=== PATIENT | female | born 1990 | race Caucasian/White ===

== ENCOUNTER 2020-04-17 16:55 | Emergency (ER) | payer MEDICARE, MEDICAID, SELFPAY ==
--- NOTE | 2020-04-17 | CT_ITS ---
CT HEAD WITHOUT CONTRAST CLINICAL INFORMATION: Headache, grand mal seizure with head trauma COMPARISON: None TECHNIQUE: Contiguous axial imaging was performed from the skull base to vertex without intravenous administration of contrast. This CT examination was performed using dose optimization techniques as appropriate, variously including the following: *Automated exposure control *Adjustment of mA and/or kV according to patient size (this includes techniques or standardized protocols for targeted exams where dose is matched to indication/reason for exam; i.e. extremities or head) *Use of iterative reconstruction technique FINDINGS: There is no intracranial hemorrhage, hydrocephalus, extra-axial surface collection, midline shift, or other herniation pattern. Branch to white matter differentiation is diffusely maintained without evidence of an evolved acute territorial infarct. The basilar cisterns are preserved. No significant soft tissue abnormality. No acute osseous abnormality. The paranasal sinuses and the mastoid air cells are well aerated. IMPRESSION: No acute intracranial abnormality. In the setting of seizure, MRI would be more sensitive in evaluation.
[2020-04-17 18:22] VITALS: PULSE 74; RESP 16; TEMP 37; O2SAT 98; BMI 25.1
--- NOTE | 2020-04-17 18:55 | PC.NURSE ---
Report taken from Claribel DAUGHERTY. First contact with PT. Laying in bed A&Ox4, skin pwd respirations even unlabored. Awaiting CTscan and lab draw.Aware of plan of care.
[2020-04-17 19:06] LABS: MANUAL DIFF FLAG NO
[2020-04-17 19:09] LABS: Basophils Absolute Auto 0.1 X10*3/uL (0.0-0.2); Basophils Percent Auto 0.8 % (0-2); Eosinophils Absolute Auto 0.1 X10*3/uL (0.0-0.4); Eosinophils Percent Auto 0.8 % (0-4); Hematocrit 38.7 % (37-47); Hemoglobin 12.8 g/dl (12.0-16.0); Imm Gran Abs Auto 0.02 X10*3/uL (0.00-0.03); Imm Gran Pct Auto 0.3 % (0.0-0.4); Lymphocytes Absolute Auto 2.1 X10*3/uL (1.2-4.9); Lymphocytes Percent Auto 32.9 % (20-40); Mean Corpuscular HGB Conc 33.1 g/dl (31.0-35.0); Mean Corpuscular Hemoglobin 29.4 pg (27.0-33.0); Mean Corpuscular Volume 88.8 fL (80-98); Monocytes Absolute Auto 0.5 X10*3/uL (0.1-1.2); Monocytes Percent Auto 7.7 % (2-11); Neutrophils Absolute Auto 3.7 X10*3/uL (2.0-8.3); Neutrophils Percent Auto 57.5 % (45-73); Platelet Count 318 X10*3/uL (160-400); Red Blood Count 4.36 X10*6/uL (4.20-5.50); Red Cell Distribution Width 11.9 % (11.0-16.0); White Blood Count 6.5 X10*3/uL (4.8-10.8)
[2020-04-17] MEDS: ondansetron HCL 4 MG/2 ML VIAL IVPUSH (19:12)
[2020-04-17] MEDS: diphenhydrAMINE HCL 50 MG/ML VIAL IVPUSH (19:13)
[2020-04-17] MEDS: 0.9 % Sodium Chloride 1,000 ML 999 ML IVCONT (19:13)
[2020-04-17] MEDS: Ketorolac Tromethamine 30 MG/ML VIAL IVPUSH (19:13)
--- NOTE | 2020-04-17 19:23 | PC.NURSE ---
Pt returned from CT, medicated per MAR for headache 11/23. IVF hung and infusing without difficulty.Awaiting results. Aware of plan of care.
[2020-04-17 19:34] LABS: Alanine Aminotransferase 9 U/L (0-31); Albumin Level 4.3 g/dL (3.5-5.0); Alkaline Phosphatase 50 U/L (39-117); Anion Gap 12 (12-20); Aspartate Amino Transferase 13 U/L (5-31); Bilirubin Direct < 0.2 mg/dL (0.0-0.5); Bilirubin Total 0.2 mg/dL (0.0-1.0); Blood Urea Nitrogen 12 mg/dL (9-16); Calcium 8.9 mg/dL (8.4-10.2); Carbon Dioxide 23 mmol/L (22-29); Chloride 108 mmol/L (96-108); Creatinine Clr Calc Pharmacy 87.6; Estimated Glomerular Filt Rate > 60; Glucose Random 90 mg/dL (60-115); Lipase 48 U/L (8-78); Potassium 4.4 mmol/l (3.3-5.1); Sodium 139 mmol/L (135-145); Total Protein 6.6 g/dL (6.5-8.0)
[2020-04-17 19:41] VITALS: BP 114/78; PULSE 63; RESP 14; O2SAT 100
--- NOTE | 2020-04-17 19:43 | ED.SEIZURE ---
HPI - Seizure General Chief Complaint: Seizure <Eileen Read NP - Last Filed: 04/17/20 21:50> Stated Complaint: SEIZURE <Eileen Read NP - Last Filed: 04/17/20 21:50> Time Seen by Provider: 04/17/20 18:10 <Eileen Read NP - Last Filed: 04/17/20 21:50> Source: patient <Eileen Read NP - Last Filed: 04/17/20 21:50> Mode of arrival: ambulatory <Eileen Read NP - Last Filed: 04/17/20 21:50> Limitations: no limitations <Eileen Read NP - Last Filed: 04/17/20 21:50> History of Present Illness HPI Narrative: 29-year-old female presents with multiple complaints. One stating that she has had multiple seizures over the past week, on Monday she had a petite mall and was able to use her implanted vagal stimulator to defect this from becoming a grand mal, on Monday she had a grand mall with loss of consciousness and possible head trauma, and also on . Her 2nd complaint is nauseousness and poor p.o. intake. She states to be very thirsty, has made out of 10 headache that has not been alleviated with her home medications and Tylenol. She does not describe any chest pain or pressure, palpitations, shortness of breath, abdominal pain,, dysuria, hematuria, fevers, chills, trauma, and illicit drug use. She was admitted to [facility] in January for intentional overdose. <Eileen Read NP - Last Filed: 04/17/20 21:50> MD complaint: seizure <Eileen Read NP - Last Filed: 04/17/20 21:50> Onset (ago): day(s) <Eileen Read NP - Last Filed: 04/17/20 21:50> Description of Episode: loss of consciousness, tonic-clonic movement, bladder incontinence and post-event confusion <Eileen Read NP - Last Filed: 04/17/20 21:50> Trauma: Yes ( Possible head trauma) <Eileen Read NP - Last Filed: 04/17/20 21:50> Seizure History: Yes <Eileen Read NP - Last Filed: 04/17/20 21:50> Place: Home <Eileen Read NP - Last Filed: 04/17/20 21:50> Possible Precipitating Event: lack of sleep and stress <Eileen Read NP - Last Filed: 04/17/20 21:50> Associated symptoms: loss of appetite <Eileen Read NP - Last Filed: 04/17/20 21:50> Related Data Home Medications: Previous Rx's Medication Instructions Recorded quztxlaamk-urrxcdzuuyfdi-yncr 1 cap PO Q8H PRN #14 cap 04/17/20 [Fioricet] <Eileen Read NP - Last Filed: 04/17/20 21:50> Allergies/Adverse Reactions: Allergies Allergy/AdvReac Type Severity Reaction Status Date / Time carbamazepine [From Tegretol] Allergy Unknown RASH Verified 04/17/20 18:54 phenytoin [From DILANTIN] Allergy Unknown rash Verified 04/17/20 18:54 <Eileen Read NP - Last Filed: 04/17/20 21:50> Review of Systems Constitutional: Constitutional: Reports difficulty sleeping, Reports headache(s) and Reports poor appetite <Eileen Read NP - Last Filed: 04/17/20 21:50> Eyes: Eyes: Reports no additional eye complaints <Eileen Read NP - Last Filed: 04/17/20 21:50> ENT: Denies vertigo, Reports headache(s) and Denies disequilibrium <Eileen Read NP - Last Filed: 04/17/20 21:50> Cardiovascular: Cardiovascular: Reports no additional cardiovascular complaints and Denies syncope <Eileen Read NP - Last Filed: 04/17/20 21:50> Respiratory: Respiratory: Reports no additional respiratory complaints <Eileen Read NP - Last Filed: 04/17/20 21:50> Gastrointestinal: Gastrointestinal: Reports early satiety and Reports nausea <Eileen Read NP - Last Filed: 04/17/20 21:50> Genitourinary: Genitourinary: Reports no additional female genitourinary complaints <Eileen Read NP - Last Filed: 04/17/20 21:50> Musculoskeletal: Musculoskeletal: Reports no additional musculoskeletal complaints and Denies abnormal gait <Eileen Read NP - Last Filed: 04/17/20 21:50> Integumentary/Breasts: Skin/Breast: Reports system reviewed and no additional complaints, except as docu <Eileen Read NP - Last Filed: 04/17/20 21:50> Neurologic: Denies Neuro-related abnormal movements, Denies Abnormal speech present, Denies abnormal gait, Denies behavioral changes, Denies vertigo, Denies syncope, Reports headache(s), Denies focal weakness, Denies Other visual disturbances, Reports seizure-like activity and Denies disequilibrium <Eileen Read NP - Last Filed: 04/17/20 21:50> Psychiatric: Psychiatric: Reports no additional psychiatric complaints and Denies behavioral changes <Eileen Read NP - Last Filed: 04/17/20 21:50> Endocrine: Endocrine: Reports no additional endocrine complaints <Eileen Read NP - Last Filed: 04/17/20 21:50> PMF Past Medical History Source: nursing notes reviewed <Eileen Read NP - Last Filed: 04/17/20 21:50> Medical History: Medical History Anxiety Borderline personality disorder Depression Seizure <Eileen Read NP - Last Filed: 04/17/20 21:50> Surgical History: Surgical History S/P placement of VNS (vagus nerve stimulation) device <Eileen Read NP - Last Filed: 04/17/20 21:50> Social History Social History: Social History Smoking Status: Current every day smoker Use of substances other than those prescribed or required for medical reasons: No Advance Directives: No Advance Directives Information Provided: Yes <Eileen Read NP - Last Filed: 04/17/20 21:50> Physical Exam Vital Signs and I&O and Narrative: Vital Signs and I&O: Vital Signs Temp 98.6 F 04/17/20 18:22 Pulse 63 04/17/20 19:41 Resp 14 04/17/20 19:41 BP 114/78 04/17/20 19:41 Pulse Ox 100 04/17/20 19:41 Intake & Output 04/17/20 04/17/20 04/18/20 06:59 18:59 06:59 Intake Total 1000 / 1000 Balance 1000 / 1000 Weight 77.21 kg Intake: Intake, IV Amoun t 1000 / 1000 0.9 % Sodium C hloride 1,000 ml 1000 / 1000 @ 999 mls/hr I VCONT .Q1H1M [facility] Rx#:[id number] Body Mass Index 25.1 <Eileen Read DIRECTOR OF RESIDENTIAL SERVICES - Last Filed: 04/17/20 21:50> Vital Signs and I&O: Vital Signs Temp 98.6 F 04/17/20 18:22 Pulse 63 04/17/20 19:41 Resp 14 04/17/20 19:41 BP 114/78 04/17/20 19:41 Pulse Ox 100 04/17/20 19:41 Intake & Output 04/17/20 04/17/20 04/18/20 06:59 18:59 06:59 Intake Total 1000 / 1000 Balance 1000 / 1000 Weight 77.21 kg Intake: Intake, IV Amoun t 1000 / 1000 0.9 % Sodium C hloride 1,000 ml 1000 / 1000 @ 999 mls/hr I VCONT .Q1H1M [facility] Rx#:[id number] Body Mass Index 25.1 <Venancio Elizondo DO - Last Filed: 04/18/20 02:24> Const: General: cooperative, healthy appearing, comfortable and well developed <Eileen Read DIRECTOR OF RESIDENTIAL SERVICES - Last Filed: 04/17/20 21:50> Nutritional Appearance: average body habitus <Eileen Read DIRECTOR OF RESIDENTIAL SERVICES - Last Filed: 04/17/20 21:50> Orientation/consciousness: patient oriented x3 <Eileen Read NP - Last Filed: 04/17/20 21:50> Limitations: no limitations <Eileen Read DIRECTOR OF RESIDENTIAL SERVICES - Last Filed: 04/17/20 21:50> HENMT: Head: Yes normal to inspection <Eileen Read NP - Last Filed: 04/17/20 21:50> Ears: hearing grossly normal bilaterally <Eileen Read DIRECTOR OF RESIDENTIAL SERVICES - Last Filed: 04/17/20 21:50> General nose exam: Normal external nose present <Eileen Read DIRECTOR OF RESIDENTIAL SERVICES - Last Filed: 04/17/20 21:50> Eyes: General: appearance normal, both eyes and all related structures <Eileen Read DIRECTOR OF RESIDENTIAL SERVICES - Last Filed: 04/17/20 21:50> Neck: Neck: Yes normal visual inspection <Eileen Read DIRECTOR OF RESIDENTIAL SERVICES - Last Filed: 04/17/20 21:50> Resp: Effort & Inspection: normal respiratory effort <Eileen Read DIRECTOR OF RESIDENTIAL SERVICES - Last Filed: 04/17/20 21:50> Auscultation: clear to auscultation bilaterally <Eileen Read DIRECTOR OF RESIDENTIAL SERVICES - Last Filed: 04/17/20 21:50> GI: Inspection: Yes normal to inspection <Eileen Read DIRECTOR OF RESIDENTIAL SERVICES - Last Filed: 04/17/20 21:50> Neuro: General: patient oriented x3 <Eileen Read DIRECTOR OF RESIDENTIAL SERVICES - Last Filed: 04/17/20 21:50> Speech: No Abnormal speech present <Eileen Read DIRECTOR OF RESIDENTIAL SERVICES - Last Filed: 04/17/20 21:50> Psych: Appearance: grossly normal <Eileen Read DIRECTOR OF RESIDENTIAL SERVICES - Last Filed: 04/17/20 21:50> Mental Status: mental status grossly normal <Eileen Read DIRECTOR OF RESIDENTIAL SERVICES - Last Filed: 04/17/20 21:50> Speech and movement: Normal speech and movement present <Eileen Read DIRECTOR OF RESIDENTIAL SERVICES - Last Filed: 04/17/20 21:50> Affect: normal affect <Eileen Read DIRECTOR OF RESIDENTIAL SERVICES - Last Filed: 04/17/20 21:50> Thought process: Normal thought process present <Eileen Read DIRECTOR OF RESIDENTIAL SERVICES - Last Filed: 04/17/20 21:50> Thought content: Normal thought content present <Eileen Read DIRECTOR OF RESIDENTIAL SERVICES - Last Filed: 04/17/20 21:50> Insight: Good insight present (Psych) <Eileen Read DIRECTOR OF RESIDENTIAL SERVICES - Last Filed: 04/17/20 21:50> Judgement: Good judgement present (Psych) <Eileen Read DIRECTOR OF RESIDENTIAL SERVICES - Last Filed: 04/17/20 21:50> Course Course Hospital Course: 29-year-old female presents with abnormal seizure activity. She is a known epileptic, has a vagal stimulator implanted, and is on multiple medications. She has been taking her medications as directed, no longer taking any illicit drugs or alcohol since attempted overdose in January. We will order CBC Chem 7, urinalysis, CT scan of the head. We will resuscitate fluids. <Eileen Read NP - Last Filed: 04/17/20 21:50> Reevaluation(s) Reevaluation #1: Patient states that her headache is 6/10 from 02/23. CT scan results pending. <Eileen Read NP - Last Filed: 04/17/20 21:50> Time: 20:14 <Eileen Read NP - Last Filed: 04/17/20 21:50> Reevaluation #2: CT scan is negative. Labs are unremarkable for acute findings at this time. Plan of care is to discharge to home and for patient to follow-up with neurology. We will give a prescription for Fioricet. Patient verbalized understanding of and agrees to plan of care discharge home. <Eileen Read NP - Last Filed: 04/17/20 21:50> MDM - Seizure Differential Diagnosis Differential diagnosis: Likely generalized seizure <Eileen Read NP - Last Filed: 04/17/20 21:50> Medical Records Attestation: I reviewed the patient's medical records. <Eileen Read NP - Last Filed: 04/17/20 21:50> Lab Data Attestation: I reviewed the patient's lab results. <Eileen Read NP - Last Filed: 04/17/20 21:50> Result diagrams: : 04/17/20 18:49 04/17/20 18:49 <Eileen Read NP - Last Filed: 04/17/20 21:50> Labs: Lab Results 04/17/20 04/17/20 Range/Units 18:49 18:49 WBC 6.5 (4.8-10.8) X10*3/uL RBC 4.36 (4.20-5.50) X10*6/uL Hgb 12.8 (12.0-16.0) g/dl Hct 38.7 (37-47) % MCV 88.8 (80-98) fL MCH 29.4 (27.0-33.0) pg MCHC 33.1 (31.0-35.0) g/dl RDW 11.9 (11.0-16.0) % Plt Count 318 (160-400) X10*3/uL MPV 10.0 (9.4-12.3) fL Immature Gran % (Auto) 0.3 (0.0-0.4) % Neut % (Auto) 57.5 (45-73) % Lymph % (Auto) 32.9 (20-40) % [place] % (Auto) 7.7 (2-11) % Eos % (Auto) 0.8 (0-4) % Baso % (Auto) 0.8 (0-2) % Neut # (Auto) 3.7 (2.0-8.3) X10*3/uL Lymph # (Auto) 2.1 (1.2-4.9) X10*3/uL [place] # (Auto) 0.5 (0.1-1.2) X10*3/uL Eos # (Auto) 0.1 (0.0-0.4) X10*3/uL Baso # (Auto) 0.1 (0.0-0.2) X10*3/uL Abs Immat Gran (auto) 0.02 (0.00-0.03) X10*3/uL Absolute Nucleated RBC 0.000 (0.0-0.012) X10*3/uL Nucleated RBC % (auto) 0.0 (0.0-0.2) /100WBC Sodium 139 (135-145) mmol/L Potassium 4.4 (3.3-5.1) mmol/l Chloride 108 (96-108) mmol/L Carbon Dioxide 23 (22-29) mmol/L Anion Gap 12 (12-20) BUN 12 (9-16) mg/dL Creatinine 0.99 (0.5-1.4) mg/dL Estim Creat Clear Calc 87.6 Estimated GFR > 60 Random Glucose 90 (60-115) mg/dL Calcium 8.9 (8.4-10.2) mg/dL Total Bilirubin 0.2 (0.0-1.0) mg/dL Direct Bilirubin < 0.2 (0.0-0.5) mg/dL AST 13 (5-31) U/L ALT 9 (0-31) U/L Alkaline Phosphatase 50 (39-117) U/L Total Protein 6.6 (6.5-8.0) g/dL Albumin 4.3 (3.5-5.0) g/dL Lipase 48 (8-78) U/L <Eileen Read NP - Last Filed: 04/17/20 21:50> Lab Results 04/17/20 04/17/20 Range/Units 18:49 18:49 WBC 6.5 (4.8-10.8) X10*3/uL RBC 4.36 (4.20-5.50) X10*6/uL Hgb 12.8 (12.0-16.0) g/dl Hct 38.7 (37-47) % MCV 88.8 (80-98) fL MCH 29.4 (27.0-33.0) pg MCHC 33.1 (31.0-35.0) g/dl RDW 11.9 (11.0-16.0) % Plt Count 318 (160-400) X10*3/uL MPV 10.0 (9.4-12.3) fL Immature Gran % (Auto) 0.3 (0.0-0.4) % Neut % (Auto) 57.5 (45-73) % Lymph % (Auto) 32.9 (20-40) % [place] % (Auto) 7.7 (2-11) % Eos % (Auto) 0.8 (0-4) % Baso % (Auto) 0.8 (0-2) % Neut # (Auto) 3.7 (2.0-8.3) X10*3/uL Lymph # (Auto) 2.1 (1.2-4.9) X10*3/uL [place] # (Auto) 0.5 (0.1-1.2) X10*3/uL Eos # (Auto) 0.1 (0.0-0.4) X10*3/uL Baso # (Auto) 0.1 (0.0-0.2) X10*3/uL Abs Immat Gran (auto) 0.02 (0.00-0.03) X10*3/uL Absolute Nucleated RBC 0.000 (0.0-0.012) X10*3/uL Nucleated RBC % (auto) 0.0 (0.0-0.2) /100WBC Sodium 139 (135-145) mmol/L Potassium 4.4 (3.3-5.1) mmol/l Chloride 108 (96-108) mmol/L Carbon Dioxide 23 (22-29) mmol/L Anion Gap 12 (12-20) BUN 12 (9-16) mg/dL Creatinine 0.99 (0.5-1.4) mg/dL Estim Creat Clear Calc 87.6 Estimated GFR > 60 Random Glucose 90 (60-115) mg/dL Calcium 8.9 (8.4-10.2) mg/dL Total Bilirubin 0.2 (0.0-1.0) mg/dL Direct Bilirubin < 0.2 (0.0-0.5) mg/dL AST 13 (5-31) U/L ALT 9 (0-31) U/L Alkaline Phosphatase 50 (39-117) U/L Total Protein 6.6 (6.5-8.0) g/dL Albumin 4.3 (3.5-5.0) g/dL Lipase 48 (8-78) U/L <Venancio Elizondo DO - Last Filed: 04/18/20 02:24> Imaging Data CT scan - head: Attestation: I personally reviewed and interpreted this imaging study as follows: <Eileen Read NP - Last Filed: 04/17/20 21:50> Radiologist's impression: There is no intracranial hemorrhage, hydrocephalus, extra-axial surface collection, midline shift, or other herniation pattern. Branch to white matter differentiation is diffusely maintained without evidence of an evolved acute territorial infarct. The basilar cisterns are preserved. No significant soft tissue abnormality. No acute osseous abnormality. The paranasal sinuses and the mastoid air cells are well aerated. <Eileen Read NP - Last Filed: 04/17/20 21:50> Discharge Plan Discharge Clinical Impression: Epileptic seizure, Migraine <Eileen Read NP - Last Filed: 04/17/20 21:50> Patient Disposition: Home, Self-Care <Eileen Read NP - Last Filed: 04/17/20 21:50> Instructions: Migraine Headache (ED), Epilepsy (ED) <Eileen Read NP - Last Filed: 04/17/20 21:50> Prescriptions: New zwnkohncxa-eucdbggagrllw-atxy [Fioricet] 50-300-40 mg capsule 1 cap PO Q8H PRN (Reason: migraine) Qty: 14 RF: 0 <Eileen Read NP - Last Filed: 04/17/20 21:50> Referrals: Mekhi Beal MD [Physician] - 2 days ( migraines, seizure disorder) <Eileen Read NP - Last Filed: 04/17/20 21:50> Discharge Date/Time: 04/17/20 20:58 <Eileen Read NP - Last Filed: 04/17/20 21:50>
--- NOTE | 2020-04-17 20:56 | PC.NURSE ---
PT MEDICATED PER MD ORDER. REPORTS FEELING BETTER, REEVAL BY SOPHIA GRIFFIN, PT AWAITING DC HOME.
== END 2020-04-17 20:58 | disposition home or self-care (01) ==
PROVIDERS: Nurse Practitioner Family; Emergency Provider Emergency Medicine; PCP Nurse Practitioner Family
DX: G40.909 Epilepsy, unspecified, not intractable, without status epilepticus (principal); G43.909 Migraine, unspecified, not intractable, without status migrainosus; Z79.899 Other long term (current) drug therapy; F17.200 Nicotine dependence, unspecified, uncomplicated; Z71.6 Tobacco abuse counseling
CPT/HCPCS: 36415; 70450; 80048; 80076; 83690; 85025; 96361; 96374; 96375; 99284; J1200; J1885; J2405

== ENCOUNTER 2020-05-21 15:38 | Emergency (ER) | payer MEDICARE, MEDICAID, SELFPAY ==
[2020-05-21 16:48] VITALS: BP 139/79; PULSE 88; RESP 16; TEMP 36.4; O2SAT 98; BMI 24.7
--- NOTE | 2020-05-21 18:40 | ED.HA ---
HPI - Headache General Chief Complaint: Headache Stated Complaint: Migraine Time Seen by Provider: 05/21/20 18:39 Source: patient Mode of arrival: ambulatory Limitations: no limitations History of Present Illness HPI Narrative: patient has history of migraine headache for a long time for last 1 month him having persistent headaches been seen by neurologist on Fioricet headache is all getting better hand she came to the ER. Patient also has history of depression denies any suicidal ideation follows with therapist twice a week spoke to therapist today. Headache is mostly localized behind the eyes. Also patient has history of seizures and while waiting in the waiting area had a small seizure MD elicited complaint: headache and migraine Onset (ago): month(s) (1) Onset description: gradually Location: retro-orbital and generalized Severity: moderate Quality & Timing: throbbing and similar to previous headaches Exacerbating factors: light and noise Relieving factors: nothing Context: occurred at rest Associated symptoms: nausea Treatments prior to arrival: migraine medication ( Fioricet) Related Data Previous Rx's Medication Instructions Recorded pexndhxyvn-tigsumkgctuwf-whbz 1 cap PO Q8H PRN #14 cap 04/17/20 [Fioricet] Allergies Allergy/AdvReac Type Severity Reaction Status Date / Time carbamazepine [From Tegretol] Allergy Unknown RASH Verified 04/17/20 18:54 phenytoin [From DILANTIN] Allergy Unknown rash Verified 04/17/20 18:54 Review of Systems Review of Systems: REVIEW OF SYSTEMS: Pertinent positives and negatives are stated above in the history. GEN: no fevers, chills, fatigue HEENT: no nasal congestion, sore throat, ear pain NEURO: no dizziness, focal weakness PULM: no cough, shortness of breath CV: no chest pain, palpitations, LE edema ABD: no abdominal pain, nausea, vomiting, diarrhea : no dysuria, urgency, frequency SKIN: no rash ROS otherwise negative x 10 PMFSH Past Medical History Medical History Anxiety Borderline personality disorder Depression Seizure Surgical History S/P placement of VNS (vagus nerve stimulation) device Social History Social History Smoking Status: Current every day smoker Advance Directives: No Advance Directives Information Provided: No Physical Exam Vital Signs: Vital Signs: Last Vital Signs Temp 97.6 F 05/21/20 16:48 Pulse 88 05/21/20 16:48 Resp 16 05/21/20 16:48 BP 139/79 05/21/20 16:48 Pulse Ox 98 05/21/20 16:48 Body Mass Index 24.7 VITAL SIGNS: Reviewed. GENERAL: Well developed, well nourished, in moderate distress. photophobia HEAD: Normocephalic/atraumatic, EYES: PERRLA No pallor/icterus noted NOSE: Nares patent bilateral OROPHARYNX: Oral mucosa moist no oral lesions NECK: Supple, no adenopathy LUNGS: Normal breath sounds. No adventitious sounds or accessory muscle use CARDIOVASCULAR: Regular rate and rhythm without noted murmurs, no JVD or lower extremity edema. ABDOMEN: Soft, non-tender, non-distended with normal bowel sounds. No rigidity. No guarding. No palpable masses or hernias noted MUSCULOSKELETAL: No tenderness, deformities, EXTREMITIES: No cyanosis or edema. SKIN: no rashes, ulcerations, jaundice, pallor NEUROLOGIC: Alert and oriented x 3. Strength and sensation to light touch were grossly intact normal speech Discharge Plan Discharge Prescriptions: No Action ajcipizqcf-qvcmywwjbcqhx-ovno [Fioricet] 50-300-40 mg capsule 1 cap PO Q8H PRN (Reason: migraine) Qty: 14 RF: 0
[2020-05-21 20:00] VITALS: BP 97/73; PULSE 71; RESP 16; TEMP 36.7; O2SAT 99
== END 2020-05-21 20:09 | disposition home or self-care (01) ==
PROVIDERS: Emergency Provider Internal Medicine; PCP Nurse Practitioner Family
DX: G43.909 Migraine, unspecified, not intractable, without status migrainosus (principal); Z79.899 Other long term (current) drug therapy; F17.200 Nicotine dependence, unspecified, uncomplicated; Z71.6 Tobacco abuse counseling
CPT/HCPCS: 96372; 99284; J3030

== ENCOUNTER 2021-01-05 09:25 | Emergency (ER) | payer MEDICARE, MEDICAID, SELFPAY ==
--- NOTE | ~2021-01-05 | CT_ITS ---
EXAMINATION: CT BRAIN AND CT CERVICAL SPINE WITHOUT CONTRAST. CLINICAL INFORMATION: Status post unwitnessed fall, seizure. COMPARISON: None TECHNIQUE: 5 mm thin axial and reformatted 2 mm thin sagittal and coronal images of cervical spine were obtained. Subsequently axial 3 mm thin and reformatted 2 mm thin sagittal and coronal images of cervical spine were obtained. [facility] 1026 FINDINGS: Brain: There is no acute intra-axial, extra-axial bleed, masses or midline shift. There is subtle cortical hypodensity in the right frontal gyrus image 11/5 likely artifact. There is no acute infarct in evolution. The lateral ventricles are symmetrical in size and configuration. The guadarrama to white matter differentiation is maintained normal. The temporal on the lateral ventricles are symmetrical as well. Bone windows reveal no calvarial abnormality. There is no scalp soft tissue abnormality. Bilateral paranasal sinuses and mastoid air cells are well-aerated. Cervical spine: There is mild reversal of cervical lordosis. The vertebral heights, alignment and disc heights are normal. The craniovertebral junction and the C1-C2 alignment is normal. No visible acute fracture, dislocation or subluxation seen. The prevertebral and paravertebral soft tissues are normal. The airway is widely patent. Visualized bilateral submandibular and parotid glands are normal. The thyroid lobes are symmetrical as well. The lung apices are clear. Post instrumentation changes as seen in the left neck CT/CT cervical spine wo con IMPRESSION: No acute intracranial process seen. Reversal of cervical lordosis likely spasm. No visible acute fracture, dislocation or subluxation seen in cervical spine. There is left anterior neck postintervention changes.
--- NOTE | ~2021-01-05 | CT_ITS ---
EXAMINATION: CT BRAIN AND CT CERVICAL SPINE WITHOUT CONTRAST. CLINICAL INFORMATION: Status post unwitnessed fall, seizure. COMPARISON: None TECHNIQUE: 5 mm thin axial and reformatted 2 mm thin sagittal and coronal images of cervical spine were obtained. Subsequently axial 3 mm thin and reformatted 2 mm thin sagittal and coronal images of cervical spine were obtained. [facility] 1026 FINDINGS: Brain: There is no acute intra-axial, extra-axial bleed, masses or midline shift. There is subtle cortical hypodensity in the right frontal gyrus image 11/5 likely artifact. There is no acute infarct in evolution. The lateral ventricles are symmetrical in size and configuration. The guadarrama to white matter differentiation is maintained normal. The temporal on the lateral ventricles are symmetrical as well. Bone windows reveal no calvarial abnormality. There is no scalp soft tissue abnormality. Bilateral paranasal sinuses and mastoid air cells are well-aerated. Cervical spine: There is mild reversal of cervical lordosis. The vertebral heights, alignment and disc heights are normal. The craniovertebral junction and the C1-C2 alignment is normal. No visible acute fracture, dislocation or subluxation seen. The prevertebral and paravertebral soft tissues are normal. The airway is widely patent. Visualized bilateral submandibular and parotid glands are normal. The thyroid lobes are symmetrical as well. The lung apices are clear. Post instrumentation changes as seen in the left neck CT/CT head/brain wo con IMPRESSION: No acute intracranial process seen. Reversal of cervical lordosis likely spasm. No visible acute fracture, dislocation or subluxation seen in cervical spine. There is left anterior neck postintervention changes.
[2021-01-05 09:40] VITALS: BP 128/79; BP 137/89; PULSE 82; PULSE 88; RESP 17; TEMP 37; O2SAT 96; O2SAT 98; BMI 25.8
--- NOTE | 2021-01-05 10:19 | ED.SEIZURE ---
HPI - Seizure General Chief Complaint: Seizure Stated Complaint: SEIZURE Time Seen by Provider: 01/05/21 09:48 Source: patient Mode of arrival: ambulatory Limitations: no limitations History of Present Illness HPI Narrative: 30 y/o female with history of seizures on Vimpat, Keppra & Lamictal, migraine headaches, alcohol abuse, anxiety who presents to the ED from home via EMS with possible seizure at home this morning. She reports falling down the stairs and being found by her mother. She was confused. She hit the left side of her head and does not know if she lost consciousness or not. She reports taking all of her seizure medication this morning prior to the event. She denies missing any doses of them or any doses of her Klonopin. She has been having seizures about 1x per month. Per patient's mother she has been drinking heavy amounts of alcohol due to depression. Patient reports drinking a few times per week, she is not concerned about her alcohol intake and that she was a previous heavy drinker and went to in the past. MD complaint: seizure Onset (ago): hour(s) Description of Episode: post-event confusion Witnessed: No Trauma: Yes Seizure History: Yes Place: Home Possible Precipitating Event: none Associated symptoms: denies other symptoms Treatments prior to arrival: none Related Data Previous Rx's Medication Instructions Recorded [id number] 1 cap PO Q8H PRN #14 cap 04/17/20 [Fioricet] [id number]-[id number]-[id number] 1 cap PO Q6H PRN #20 cap 05/21/20 [Fioricet] ondansetron HCl [Zofran] 4 mg PO Q8H PRN #14 tab 05/21/20 sumatriptan succinate [Imitrex] 50 mg PO Q2H PRN #10 tab MDD 2 tab 05/21/20 Allergies Allergy/AdvReac Type Severity Reaction Status Date / Time carbamazepine [From Tegretol] Allergy Unknown RASH Verified 04/17/20 18:54 phenytoin [From DILANTIN] Allergy Unknown rash Verified 04/17/20 18:54 Review of Systems Review of Systems: Constitutional: No Fever, No Chills ENT/Mouth: No sore throat, No Rhinorrhea, No Swallowing Difficulty Eyes: No Eye Pain, No Swelling Cardiovascular: No Chest Pain, No SOB, No Orthopnea, No Edema Respiratory: No Cough, No Sputum, No Wheezing, No dyspnea Gastrointestinal: No Nausea, No Vomiting, No Diarrhea, No abdominal Pain Genitourinary: No Dysuria, No Urinary Frequency, No Hematuria Musculoskeletal: No joint pain, No Myalgias Skin: No Skin Lesions, No rash Neuro: No Weakness, No Numbness, No Dizziness, + Headache Psych: No Anxiety/Panic, + Depression Heme/Lymph: No Bruising, No Lymphadenopathy Endocrine: No Polyuria, No Polydipsia PMFSH Past Medical History Attestation statement: The following information was validated with the patient. Medical History Anxiety Borderline personality disorder Depression Seizure Surgical History S/P placement of VNS (vagus nerve stimulation) device Social History Social History Alcohol intake: current Alcohol intake frequency: a few times a week Patient Tobacco Use Status: Current everyday Tobacco user Use of substances other than those prescribed or required for medical reasons: No Advance Directives: No Advance Directives Information Provided: No Patient : No Physical Exam Vital Signs: Vital Signs: Last Vital Signs Temp 98.6 F 01/05/21 09:40 Pulse 71 01/05/21 11:11 Resp 20 01/05/21 11:11 BP 127/78 01/05/21 11:11 Pulse Ox 98 01/05/21 11:11 Body Mass Index 25.8 Appearance: Alert. Oriented X3. No acute distress. Head: atraumatic, normocephalic, Eyes: Pupils equal, round and reactive to light. EOMI, no nystagmus ENT: Pharynx normal. No dental injury, no tongue biting. Neck: Normal inspection. Neck supple. CVS: Normal heart rate and rhythm. Pulses normal. Respiratory: No respiratory distress. Breath sounds normal. Abdomen: Soft and nontender. +BS x4 Skin: Skin warm and dry. Normal skin color. Normal skin turgor. No rashes. Extremities: No lower extremity edema. Neuro: Oriented X 3. No motor deficit. No sensory deficit. Speaks in complete sentences. Course Course Course Narrative: 30 y/o female with history of seizure disorder, borderline personality, ETOH abuse who presents to the ED with probable seizure at home and fall down the stairs. She is AAO x3 on arrival and non-focal on neuro exam. Reports compliance with her medications and has been having 1 seizure per month. Follows with Dr. Beal. She has no signs or symptoms of ETOH intoxication or withdrawal. Will check lab workup, CT head/neck. She would like to go home. Encouraged to stay for workup and evaluation. Reevaluation(s) Reevaluation #1: CT head/neck showed no traumatic injury. Metabolic workup is unremarkable including normal CK and normal lactic acid - both of which are usually elevated with tonic clonic seizures. UA is slightly positive however she is asymptomatic. No WBC or fever. Will hold off treatment for now and await urine culture. Patient agreeable with plan. She remains AAO and would like to be dishcarged home to the care of her mother. Comfortable with D/C home with plan to follow up with Dr. Beal for further management. MDM - Seizure Lab Data Result diagrams: 01/05/21 10:49 01/05/21 10:50 Labs: Lab Results 01/05/21 01/05/21 01/05/21 Range/Units 10:48 10:49 10:49 WBC 5.7 (4.8-10.8) X10*3/uL RBC 4.21 (4.20-5.50) X10*6/uL Hgb 12.8 (12.0-16.0) g/dl Hct 39.4 (37-47) % MCV 93.6 (80-98) fL MCH 30.4 (27.0-33.0) pg MCHC 32.5 (31.0-35.0) g/dl RDW 12.2 (11.0-16.0) % Plt Count 268 (160-400) X10*3/uL MPV 9.5 (9.4-12.3) fL Immature Gran % (Auto) 0.7 H (0.0-0.4) % Neut % (Auto) 62.8 (45-73) % Lymph % (Auto) 23.0 (20-40) % Bennett % (Auto) 10.5 (2-11) % Eos % (Auto) 2.5 (0-4) % Baso % (Auto) 0.5 (0-2) % Lymph # (Auto) 1.3 (1.2-4.9) X10*3/uL Bennett # (Auto) 0.6 (0.1-1.2) X10*3/uL Eos # (Auto) 0.1 (0.0-0.4) X10*3/uL Baso # (Auto) 0.0 (0.0-0.2) X10*3/uL Abs Immat Gran (auto) 0.04 H (0.00-0.03) X10*3/uL Absolute Neuts (auto) 3.6 (2.0-8.3) X10*3/uL Absolute Nucleated RBC 0.000 (0.0-0.012) X10*3/uL Nucleated RBC % (auto) 0.0 (0.0-0.2) /100WBC Hold Blue Top SEE NOTE Sodium (135-145) mmol/L Potassium (3.3-5.1) mmol/L Chloride (96-108) mmol/L Carbon Dioxide (22-29) mmol/L Anion Gap (12-20) BUN (9-16) mg/dL Creatinine (0.5-1.4) mg/dL Estim Creat Clear Calc Estimated GFR Random Glucose (60-115) mg/dL Lactic Acid (0.5-2.0) mmol/L Calcium (8.4-10.2) mg/dL Magnesium (1.6-2.6) mg/dL Total Bilirubin (0.0-1.0) mg/dL Direct Bilirubin (0.0-0.5) mg/dL AST (5-31) U/L ALT (0-31) U/L Alkaline Phosphatase (39-117) U/L Total Creatine Kinase (26-140) U/L Total Protein (6.5-8.0) g/dL Albumin (3.5-5.0) g/dL Urine Color Urine Appearance Urine pH (5.0-8.0) Ur Specific [place] (1.005-1.025) Urine Protein (NEG-TRACE) MG/DL Urine Glucose (UA) (NEG) MG/DL Urine Ketones (NEG) MG/DL Urine Blood (NEG) Urine Nitrite (NEG) Ur Leukocyte Esterase (NEG) Urine RBC (0) /HPF Urine WBC (0-4) /HPF Ur Squamous Epith Cells /LPF Urine Bacteria /LPF Urine Test (NEGATIVE) Urine Opiates Screen (Not Detect) Ur Barbiturates Screen (Not Detect) Ur Phencyclidine Scrn (Not Detect) Ur Amphetamines Screen (Not Detect) U Benzodiazepines Scrn (Not Detect) Urine Cocaine Screen (Not Detect) U Marijuana (THC) Screen (Not Detect) Ethyl Alcohol < 10 mg/dL 01/05/21 01/05/21 01/05/21 Range/Units 10:49 10:50 11:05 WBC (4.8-10.8) X10*3/uL RBC (4.20-5.50) X10*6/uL Hgb (12.0-16.0) g/dl Hct (37-47) % MCV (80-98) fL MCH (27.0-33.0) pg MCHC (31.0-35.0) g/dl RDW (11.0-16.0) % Plt Count (160-400) X10*3/uL MPV (9.4-12.3) fL Immature Gran % (Auto) (0.0-0.4) % Neut % (Auto) (45-73) % Lymph % (Auto) (20-40) % Bennett % (Auto) (2-11) % Eos % (Auto) (0-4) % Baso % (Auto) (0-2) % Lymph # (Auto) (1.2-4.9) X10*3/uL Bennett # (Auto) (0.1-1.2) X10*3/uL Eos # (Auto) (0.0-0.4) X10*3/uL Baso # (Auto) (0.0-0.2) X10*3/uL Abs Immat Gran (auto) (0.00-0.03) X10*3/uL Absolute Neuts (auto) (2.0-8.3) X10*3/uL Absolute Nucleated RBC (0.0-0.012) X10*3/uL Nucleated RBC % (auto) (0.0-0.2) /100WBC Hold Blue Top Sodium 141 (135-145) mmol/L Potassium 5.1 (3.3-5.1) mmol/L Chloride 107 (96-108) mmol/L Carbon Dioxide 28 (22-29) mmol/L Anion Gap 11 L (12-20) BUN 13 (9-16) mg/dL Creatinine 0.82 (0.5-1.4) mg/dL Estim Creat Clear Calc 104.8 Estimated GFR > 60 Random Glucose 94 (60-115) mg/dL Lactic Acid 1.3 (0.5-2.0) mmol/L Calcium 9.2 (8.4-10.2) mg/dL Magnesium 1.9 (1.6-2.6) mg/dL Total Bilirubin 0.5 (0.0-1.0) mg/dL Direct Bilirubin 0.2 (0.0-0.5) mg/dL AST 15 (5-31) U/L ALT 14 (0-31) U/L Alkaline Phosphatase 69 D (39-117) U/L Total Creatine Kinase 84 (26-140) U/L Total Protein 6.5 (6.5-8.0) g/dL Albumin 4.2 (3.5-5.0) g/dL Urine Color STRAW Urine Appearance HAZY Urine pH 6.0 (5.0-8.0) Ur Specific [place] <= 1.005 (1.005-1.025) Urine Protein NEG (NEG-TRACE) MG/DL Urine Glucose (UA) NEG (NEG) MG/DL Urine Ketones NEG (NEG) MG/DL Urine Blood NEG (NEG) Urine Nitrite NEG (NEG) Ur Leukocyte Esterase TRACE H (NEG) Urine RBC 0 (0) /HPF Urine WBC 1-4 (0-4) /HPF Ur Squamous Epith Cells 2+ /LPF Urine Bacteria 1+ /LPF Urine Test (NEGATIVE) Urine Opiates Screen (Not Detect) Ur Barbiturates Screen (Not Detect) Ur Phencyclidine Scrn (Not Detect) Ur Amphetamines Screen (Not Detect) U Benzodiazepines Scrn (Not Detect) Urine Cocaine Screen (Not Detect) U Marijuana (THC) Screen (Not Detect) Ethyl Alcohol mg/dL 01/05/21 01/05/21 Range/Units 11:05 11:06 WBC (4.8-10.8) X10*3/uL RBC (4.20-5.50) X10*6/uL Hgb (12.0-16.0) g/dl Hct (37-47) % MCV (80-98) fL MCH (27.0-33.0) pg MCHC (31.0-35.0) g/dl RDW (11.0-16.0) % Plt Count (160-400) X10*3/uL MPV (9.4-12.3) fL Immature Gran % (Auto) (0.0-0.4) % Neut % (Auto) (45-73) % Lymph % (Auto) (20-40) % Bennett % (Auto) (2-11) % Eos % (Auto) (0-4) % Baso % (Auto) (0-2) % Lymph # (Auto) (1.2-4.9) X10*3/uL Bennett # (Auto) (0.1-1.2) X10*3/uL Eos # (Auto) (0.0-0.4) X10*3/uL Baso # (Auto) (0.0-0.2) X10*3/uL Abs Immat Gran (auto) (0.00-0.03) X10*3/uL Absolute Neuts (auto) (2.0-8.3) X10*3/uL Absolute Nucleated RBC (0.0-0.012) X10*3/uL Nucleated RBC % (auto) (0.0-0.2) /100WBC Hold Blue Top Sodium (135-145) mmol/L Potassium (3.3-5.1) mmol/L Chloride (96-108) mmol/L Carbon Dioxide (22-29) mmol/L Anion Gap (12-20) BUN (9-16) mg/dL Creatinine (0.5-1.4) mg/dL Estim Creat Clear Calc Estimated GFR Random Glucose (60-115) mg/dL Lactic Acid (0.5-2.0) mmol/L Calcium (8.4-10.2) mg/dL Magnesium (1.6-2.6) mg/dL Total Bilirubin (0.0-1.0) mg/dL Direct Bilirubin (0.0-0.5) mg/dL AST (5-31) U/L ALT (0-31) U/L Alkaline Phosphatase (39-117) U/L Total Creatine Kinase (26-140) U/L Total Protein (6.5-8.0) g/dL Albumin (3.5-5.0) g/dL Urine Color Urine Appearance Urine pH (5.0-8.0) Ur Specific [place] (1.005-1.025) Urine Protein (NEG-TRACE) MG/DL Urine Glucose (UA) (NEG) MG/DL Urine Ketones (NEG) MG/DL Urine Blood (NEG) Urine Nitrite (NEG) Ur Leukocyte Esterase (NEG) Urine RBC (0) /HPF Urine WBC (0-4) /HPF Ur Squamous Epith Cells /LPF Urine Bacteria /LPF Urine Test NEGATIVE (NEGATIVE) Urine Opiates Screen Not Detected (Not Detect) Ur Barbiturates Screen Not Detected (Not Detect) Ur Phencyclidine Scrn Not Detected (Not Detect) Ur Amphetamines Screen Not Detected (Not Detect) U Benzodiazepines Scrn Not Detected (Not Detect) Urine Cocaine Screen Not Detected (Not Detect) U Marijuana (THC) Screen Not Detected (Not Detect) Ethyl Alcohol mg/dL Discharge Plan Discharge Clinical Impression: Fall Qualifiers: Encounter type: initial encounter Qualified Code(s): W19.XXXA - Unspecified fall, initial encounter Patient Disposition: Home, Self-Care Instructions: Recurrent Seizures in Adults (ED), Fall Prevention (ED) Additional Instructions: Your CT scan was unremarkable. Your lab workup was normal. Recommending following up with Dr. Beal this week. Take all of your medications as prescribed. Recommend abstaining from alcohol. If you have recurrent seizure or any other concerning symptoms call 911 or come back to the ER for further evaluation. Prescriptions: No Action sumatriptan succinate [Imitrex] 50 mg tablet 50 mg PO Q2H MDD 2 tab PRN (Reason: migraine headache) Qty: 10 RF: 0 ondansetron HCl [Zofran] 4 mg tablet 4 mg PO Q8H PRN (Reason: nausea and vomiting) Qty: 14 RF: 0 [id number] [Fioricet] 50-300-40 mg capsule 1 cap PO Q6H PRN (Reason: pain) Qty: 20 RF: 0 pwlquxtgnt-smaozisntzgvr-eyry [Fioricet] 50-300-40 mg capsule 1 cap PO Q8H PRN (Reason: migraine) Qty: 14 RF: 0 Referrals: Mekhi Beal MD [Physician] - 2 days (seizure disorder with breakthrough seizures, on 3 AED's)
[2021-01-05] MEDS: 0.9 % Sodium Chloride 1,000 ML 999 ML IVCONT (10:35)
[2021-01-05 10:58] LABS: MANUAL DIFF FLAG NO
[2021-01-05 11:00] LABS: Basophils Percent Auto 0.5 % (0-2); Eosinophils Absolute Auto 0.1 X10*3/uL (0.0-0.4); Eosinophils Percent Auto 2.5 % (0-4); Hematocrit 39.4 % (37-47); Hemoglobin 12.8 g/dl (12.0-16.0); Imm Gran Abs Auto 0.04 X10*3/uL (0.00-0.03); Imm Gran Pct Auto 0.7 % (0.0-0.4); Lymphocytes Absolute Auto 1.3 X10*3/uL (1.2-4.9); Mean Corpuscular HGB Conc 32.5 g/dl (31.0-35.0); Mean Corpuscular Hemoglobin 30.4 pg (27.0-33.0); Mean Corpuscular Volume 93.6 fL (80-98); Mean Platelet Volume 9.5 fL (9.4-12.3); Monocytes Absolute Auto 0.6 X10*3/uL (0.1-1.2); Monocytes Percent Auto 10.5 % (2-11); Neutrophils Absolute Auto 3.6 X10*3/uL (2.0-8.3); Neutrophils Percent Auto 62.8 % (45-73); Platelet Count 268 X10*3/uL (160-400); Red Blood Count 4.21 X10*6/uL (4.20-5.50); Red Cell Distribution Width 12.2 % (11.0-16.0); White Blood Count 5.7 X10*3/uL (4.8-10.8)
[2021-01-05 11:11] VITALS: BP 127/78; PULSE 71; RESP 20; O2SAT 98
[2021-01-05 11:19] LABS: Lactic Acid 1.3 mmol/L (0.5-2.0)
[2021-01-05 11:20] LABS: Ethanol < 10 mg/dL
[2021-01-05 11:23] LABS: Alanine Aminotransferase 14 U/L (0-31); Albumin Level 4.2 g/dL (3.5-5.0); Alkaline Phosphatase 69 U/L (39-117); Anion Gap 11 (12-20); Aspartate Amino Transferase 15 U/L (5-31); Bilirubin Direct 0.2 mg/dL (0.0-0.5); Bilirubin Total 0.5 mg/dL (0.0-1.0); Blood Urea Nitrogen 13 mg/dL (9-16); Calcium 9.2 mg/dL (8.4-10.2); Carbon Dioxide 28 mmol/L (22-29); Chloride 107 mmol/L (96-108); Creatinine Clr Calc Pharmacy 104.8; Estimated Glomerular Filt Rate > 60; Glucose Random 94 mg/dL (60-115); Magnesium 1.9 mg/dL (1.6-2.6); Potassium 5.1 mmol/L (3.3-5.1); Sodium 141 mmol/L (135-145); Total Protein 6.5 g/dL (6.5-8.0)
[2021-01-05 11:39] LABS: Glucose Urine UA NEG (NEG); Leukocyte Esterase Urine TRACE (NEG); Nitrite Urine NEG (NEG); Specific Gravity - Urine <= 1.005 (1.005-1.025); UACC Culture Trigger YES; Urine Blood NEG (NEG); Urine Ketones NEG (NEG); Urine Protein NEG (NEG-TRACE)
[2021-01-05 11:42] LABS: Appearance Urine HAZY; Color Urine STRAW
[2021-01-05 11:42] LABS: UPreg QC Valid YES; Urine Pregnancy NEGATIVE (NEGATIVE)
[2021-01-05 11:46] LABS: Bacteria Urine 1+ /LPF; RBC Urine 0 /HPF (0); Squamous Epithelial Cell Urine 2+ /LPF
[2021-01-05 12:05] LABS: Amphetamine Screen Urine Not Detected (Not Detect); Barbiturates, Urine Not Detected (Not Detect); Benzodiazepines Screen Urine Not Detected (Not Detect); Cannabinoid Screen Urine Not Detected (Not Detect); Cocaine Screen Urine Not Detected (Not Detect); Opiate Screen Urine Not Detected (Not Detect); Phencyclidine Screen Urine Not Detected (Not Detect)
== END 2021-01-05 13:00 | disposition home or self-care (01) ==
PROVIDERS: Physician Assistant; Emergency Provider Emergency Medicine Emergency Medical Services; PCP Nurse Practitioner Family
DX: R56.9 Unspecified convulsions (principal); F10.10 Alcohol abuse, uncomplicated; F41.9 Anxiety disorder, unspecified; Z79.899 Other long term (current) drug therapy; Z91.81 History of falling
CPT/HCPCS: 36415; 70450; 72125; 80048; 80076; 80307; 81001; 81003; 81025; 82077; 82550; 83605; 83735; 85025; 87086; 96361; 96374; 99284